=== PATIENT | female | born 1985 | race Two or more races ===

== ENCOUNTER 2017-03-25 00:34 | Emergency (ER) | payer MEDICAID, OTHER ==
[~2017-03-25] VITALS: Ht 162.6 cm; Wt 110.2 kg
[2017-03-25] MEDS ORDERED: KETOROLAC TROMETH 60MG/2ML VIAL IM ONE (02:45)
[2017-03-25 03:05] VITALS: BP 127/70
== END 2017-03-25 04:27 | disposition home or self-care (01) ==
LOC: ER 00:36
DX: N21.1 Calculus in urethra (principal)
CPT/HCPCS: 74176; 96372; 99284; J1885